=== PATIENT | female | born 1940 | race Caucasian/White ===

== ENCOUNTER → 2016-10-23 | Outpatient (CLI) | payer OTHER ==
[~2016-10-23] MED LIST: AMLODIPINE BESY10 MG PO; BENAZEPRIL HCL40 MG PO; CELECOXIB100 MG PO; HYDROCODONE-AP1 EAC6 PO; LEVOTHYROXIN0.088 MG PO; NEURONTIN 300300 M1 PO; PAROXETINE HCL20 MG PO; PREMARIN0.625 MG PO; RESTORIL30 MG PO; ROBAXIN 750 MG750 M1 PO
== END ==
LOC: ULTRA 02:34 → RAD 02:34
DX: N63 Unspecified lump in breast (principal); N60.01 Solitary cyst of right breast

== ENCOUNTER → 2017-11-26 | Outpatient (CLI) | payer OTHER | LOC: RAD 00:42 | DX: Z12.31 Encounter for screening mammogram for malignant neoplasm of breast (principal) ==

== ENCOUNTER → 2017-12-09 | Outpatient (CLI) | payer OTHER | LOC: ULTRA 02:08 | DX: N60.01 Solitary cyst of right breast (principal) ==

== ENCOUNTER → 2019-01-04 | Outpatient (CLI) | payer OTHER | LOC: RAD 12:19 | DX: Z12.31 Encounter for screening mammogram for malignant neoplasm of breast (principal) ==

== ENCOUNTER → 2020-02-28 | Outpatient (CLI) | payer OTHER | LOC: RAD 11:39 | DX: Z12.31 Encounter for screening mammogram for malignant neoplasm of breast (principal) ==

== ENCOUNTER → 2020-03-14 | Outpatient (CLI) | payer OTHER | LOC: ULTRA 13:37 | DX: N60.01 Solitary cyst of right breast (principal) ==

== ENCOUNTER → 2021-03-15 | Outpatient (CLI) | payer OTHER | LOC: BC 12:50 | PROVIDERS: ATTEND Family Medicine | DX: Z12.31 Encounter for screening mammogram for malignant neoplasm of breast (principal); N64.89 Other specified disorders of breast ==